=== PATIENT | female | born 2000 | race Caucasian/White ===

== ENCOUNTER 2020-11-01 14:32 | Emergency (ER) | payer OTHER ==
[~2020-11-01 14:32] MED LIST: BENTYL 20MG TAB20 MG PO; KEFLEX CAP 500500 MG PO; PROVERA10 MG PO; ZOFRAN ODT 4 MG4 MG PO
[2020-11-01] MEDS ORDERED: EPIPEN 2-P0.3 MG/0.3 INJ (16:26)
[2020-11-01] MEDS ORDERED: PEPCID20 MG PO (16:26)
[2020-11-01] MEDS ORDERED: BENADRYL ALLERG25 MG PO (16:26)
[2020-11-01] MEDS ORDERED: PREDNISONE 20 M20 MG PO (16:26)
== END 2020-11-01 16:35 | disposition home or self-care (01) ==
LOC: ER1 14:32
DX: T63.461A Toxic effect of venom of wasps, accidental (unintentional), initial encounter (principal); Z91.030 Bee allergy status
CPT/HCPCS: 96372; 99282; J2920

== ENCOUNTER 2020-11-15 14:45 | Emergency (ER) | payer OTHER ==
[~2020-11-15 14:45] MED LIST changes: +BENADRYL ALLERG25 MG PO; +EPIPEN 2-P0.3 MG/0.3 INJ; +PEPCID20 MG PO; +PREDNISONE 20 M20 MG PO
== END 2020-11-15 16:20 | disposition home or self-care (01) ==
LOC: ER1 14:45
DX: T63.441A Toxic effect of venom of bees, accidental (unintentional), initial encounter (principal); Z88.8 Allergy status to other drugs, medicaments and biological substances
CPT/HCPCS: 99281; J2930

== ENCOUNTER 2021-08-04 13:30 | Emergency (ER) | payer OTHER ==
[2021-08-04 14:13] LABS: HEMOGLOBIN 13.3 gm/dl (12.3-15.3); RED BLOOD COUNT 4.62 M/UL (4.00-5.10); WHITE BLOOD COUNT 9.3 K/UL (4.5-11.0)
[2021-08-04 14:30] LABS: BUN/CREATININE RATIO 10 (0-10)
[2021-08-04] MEDS ORDERED: PHENERGAN 25 MG25 M1 PO (15:31)
[2021-08-04] MEDS ORDERED: MACROBID 100 M100 MG PO (15:33)
== END 2021-08-04 17:40 | disposition home or self-care (01) ==
LOC: ER1 13:30
PROVIDERS: Physician Assistant
DX: O23.41 Unspecified infection of urinary tract in pregnancy, first trimester (principal); N39.0 Urinary tract infection, site not specified; O26.891 Other specified pregnancy related conditions, first trimester; Z3A.10 10 weeks gestation of pregnancy
CPT/HCPCS: 80053; 81001; 83690; 84702; 85025; 87077; 87086; 87186; 96374; 99284; J2550; J7030